=== PATIENT | male | born 1995 | race Caucasian/White ===

== ENCOUNTER 2018-11-10 17:53 | Emergency (ER) | payer OTHER ==
[~2018-11-10] VITALS: Ht 182.8 cm; Wt 127.0 kg
[2018-11-10] MEDS ORDERED: MULTIVITAMINS1 EAC5 PO (18:25)
== END 2018-11-10 20:30 | disposition home or self-care (01) ==
LOC: ED 17:53
DX: S93.401A Sprain of unspecified ligament of right ankle, initial encounter (principal); S00.81XA Abrasion of other part of head, initial encounter; S50.811A Abrasion of right forearm, initial encounter; M54.2 Cervicalgia; Z79.899 Other long term (current) drug therapy; V17.4XXA Pedal cycle driver injured in collision with fixed or stationary object in traffic accident, initial encounter; Y93.I9 Activity, other involving external motion; Y92.488 Other paved roadways as the place of occurrence of the external cause; Y99.8 Other external cause status